=== PATIENT | male | born 1970 | race Caucasian/White ===

== ENCOUNTER 2019-07-14 13:56 | Emergency (ER) | payer BC ==
[~2019-07-14] VITALS: Ht 188 cm; Wt 98.2 kg
[~2019-07-14 13:56] MED LIST: NO HOME MEDICATIONS; PERCOCET 5/321 UDTAB PO
[2019-07-14 14:01] VITALS: TEMP 97.3
[2019-07-14] MEDS ORDERED: FLEXERIL 1010 MG/TAB PO (16:37)
[2019-07-14] MEDS ORDERED: NORCO 325 MG-51 TAB PO (16:37)
[2019-07-14] MEDS ORDERED: PREDNISONE20 MG PO (16:37)
[2019-07-14 16:49] VITALS: BP 137/78; PULSE 80
== END 2019-07-14 16:51 | disposition home or self-care (01) ==
LOC: COL.ER 13:56
DX: M54.5 Low back pain (principal)
CPT/HCPCS: J1170; J1885; J2360

== ENCOUNTER 2021-09-22 08:23 | Day surgery (SDC) | payer BC ==
[~2021-09-22] VITALS: Ht 190.5 cm; Wt 100.2 kg
[~2021-09-22 08:23] MED LIST changes: +FLEXERIL 1010 MG/TAB PO; +NORCO 325 MG-51 TAB PO; +PREDNISONE20 MG PO
[2021-09-22 08:40] VITALS: BP 145/91; PULSE 53; TEMP 97.3
[2021-09-22] MEDS ORDERED: AMOXICILLIN875 MG PO (08:44)
[2021-09-22] MEDS ORDERED: MUCINEX 60600 MG/TA1 PO (08:45)
[2021-09-22 10:15] VITALS: BP 123/81; PULSE 58; TEMP 97.7
--- NOTE | 2021-09-22 10:15 | NUR ---
Patient back into [facility] from endo procedure. Ambulated to chair with 1 assist. Patient alert and awake. at bedside. Dr. Jones previously in room to discuss findings of colonoscopy with . Patient denies pain or nausea. Requesting sprite and blueberry muffin. Patient left with call light within reach. Vital signs stable. Report recieved from LEXI Orr.
[2021-09-22 10:30] VITALS: BP 130/92; PULSE 56
--- NOTE | 2021-09-22 10:30 | NUR ---
Patient alert and awake. Tolerated food and drink well. No complaint of pain or nausea. at bedside. Call light within reach. Vital signs stable.
--- NOTE | 2021-09-22 10:40 | NUR ---
Patient alert and awake. Denies pain or nausea. Tolerated food and drink well. Went through discharge instructions with patient and . Both verbalized understanding to education. IV removed without complications. Patient to get dressed with assistance from .
[2021-09-22 10:45] VITALS: BP 126/76; PULSE 61
--- NOTE | 2021-09-22 10:50 | NUR ---
Vital signs stable. Patient dressed and ready for discharge. left to pull up car. Patient escorted to patient entrance via wheelchair. Patient got into personal vehicle unassisted and left in the care of his , Rosa.
== END 2021-09-22 10:50 | disposition home or self-care (01) ==
LOC: SDCO 08:23
DX: Z12.11 Encounter for screening for malignant neoplasm of colon (principal); D12.3 Benign neoplasm of transverse colon; J06.9 Acute upper respiratory infection, unspecified; J01.00 Acute maxillary sinusitis, unspecified; Z79.1 Long term (current) use of non-steroidal anti-inflammatories (NSAID); Z79.899 Other long term (current) drug therapy; Z86.16 Personal history of COVID-19
CPT/HCPCS: J2704; J7120

== ENCOUNTER 2022-09-11 12:10 | Outpatient (RCR) | payer BC ==
[~2022-09-11 12:10] MED LIST changes: +AMOXICILLIN875 MG PO; +COLACE 100100 MG/CAP PO; +MIRALAX PA17 GM/Dose PO; +MUCINEX 60600 MG/TA1 PO
== END 2022-09-19 | disposition home or self-care (01) ==
LOC: COL.CR
DX: Z48.812 Encounter for surgical aftercare following surgery on the circulatory system (principal); Z98.61 Coronary angioplasty status; I21.9 Acute myocardial infarction, unspecified

== ENCOUNTER 2023-06-12 14:45 | Emergency (ER) | payer BC ==
[~2023-06-12] VITALS: Ht 190.5 cm; Wt 97.7 kg
[~2023-06-12 14:45] MED LIST changes: +ASPIRIN 81M81 MG/TA2 PO; +ASTELIN NASAL S34 ML NS; +LIPITOR 80MG80 MG PO; +NITROSTAT0.4 MG/TAB SL; +NORVASC 10MG10 MG PO; +PERCOCET 325 MG1 TA2 PO; +PLAVIX 75MG TAB75 MG PO; +ZESTRIL 20MG TA20 MG PO
[2023-06-12 14:52] VITALS: TEMP 98.1
[2023-06-12 15:11] LABS: BASO % 0.3 % (0.0-2.0); EOS % 0.6 % (0.0-4.0); GRAN # 4.5 K/mm3 (1.4-6.5); GRAN % 65.3 % (42.2-75.2); HEMATOCRIT 41.8 % (42.0-52.0); HEMOGLOBIN 14.5 g/dl (13.5-18.0); LYMPH # 1.8 K/mm3 (1.2-3.4); MEAN CELL VOLUME 93 fl (80.0-100.0); MEAN CORPUSCULAR HEMOGLOBIN 32 pg (27-31); MEAN CORPUSCULAR HGB CONC 35 g/dl (33.0-37.0); MEAN PLATELET VOLUME 8.5 fl (7.4-10.4); MONO # 0.5 K/mm3 (0.1-0.6); MONO % 7.7 % (1.7-9.3); PLATELET COUNT 246 K/mm3 (130-400); RED BLOOD COUNT 4.51 M/mm3 (4.20-5.60); REDCELL DISTRIBUTION WIDTH-CV 11.8 % (11.5-14.5)
[2023-06-12 15:36] LABS: ALANINE AMINOTRANSFERASE 33 U/L (0-55); ALBUMIN 4.2 gm/dL (3.5-5.0); ALKALINE PHOSPHATASE 87 U/L (40-150); ANION GAP 11 mmol/L (7-16); AST,SGOT 22 U/L (5-34); BILIRUBIN,TOTAL 1.1 mg/dL (0.2-1.2); BLOOD UREA NITROGEN 28 mg/dL (8-26); CALCIUM 9.2 mg/dL (8.4-10.2); CARBON DIOXIDE 21 mmol/L (22-29); CHLORIDE 108 mmol/L (98-107); CREATININE, serum 0.93 mg/dL (0.72-1.25); GLUCOSE 104 mg/dL (70-99); POTASSIUM 4.1 mmol/L (3.5-4.5); SODIUM 140 mmol/L (136-145); TOTAL PROTEIN 6.6 gm/dL (6.2-8.1)
[2023-06-12 15:44] LABS: TROPONIN-I < 0.010 ng/mL (0.00-0.033)
[2023-06-12 18:26] VITALS: BP 118/81; PULSE 58
== END 2023-06-12 18:36 | disposition home or self-care (01) ==
LOC: COL.ER 14:45
PROVIDERS: Physician Assistant
DX: R07.89 Other chest pain (principal); Z95.5 Presence of coronary angioplasty implant and graft; Z79.02 Long term (current) use of antithrombotics/antiplatelets; Z79.82 Long term (current) use of aspirin
CPT/HCPCS: J7030